=== PATIENT | male | born 1990 | race Caucasian/White ===

== ENCOUNTER 2017-02-15 22:15 | Emergency (ER) | payer OTHER ==
[2017-02-15] MEDS ORDERED: Tetan/Diph/Pertus SYR(Tdap)* 0.5 ML SYR(BOOSTRIX) use SYR IM ONE (22:34)
[2017-02-15] MEDS ORDERED: Clindamycin 600 MG IVPREMIX(* 600 MG/50 ML SDV IV ONE (22:34)
[2017-02-15] MEDS ORDERED: NS 0.9% 1000 ML* 1,000 ML IV ONE (22:36)
[2017-02-15] MEDS: HYDROmorphone* 1 MG/ML 1 ML SYR IV SLOW PU ONE (22:50)
[2017-02-15 23:02] LABS: Hematocrit 48 % (42-52); Hemoglobin 16.6 g/dl (14.0-18.0); Mean Corpuscular HGB Conc 35 g/dl (31-36); Mean Corpuscular Hemoglobin 30 pg (27-31); Mean Corpuscular Volume 85 fL (80-94); Mean Platelet Volume 8 um3 (7.4-10.4); Red Blood Count 5.61 10^6/ul (4.0-5.4); Red Cell Distribution Width 13 % (10.5-15); White Blood Count 9.7 10^3/ul (3.5-10.8)
[2017-02-15 23:18] LABS: Albumin 4.3 g/dL (3.2-5.2); BUN/Creatinine Ratio 20.4 (8-20); Calcium 9.2 mg/dL (8.6-10.3); EGFR African American 118.9 (>60); EGFR Non-African American 92.5 (>60); Globulin 2.8 g/dL (2-4); Potassium 3.1 mmol/L (3.5-5.0); Total Bilirubin 0.5 mg/dL (0.2-1.0); Total Protein 7.1 g/dL (6.4-8.9)
[2017-02-15] MEDS ORDERED: HYDROmorphone* 1 MG/ML 1 ML SYR IV SLOW PU ONE (23:25)
[2017-02-16] MEDS ORDERED: HYDROmorphone* 1 MG/ML 1 ML SYR IV SLOW PU ONE (01:37)
[2017-02-16] MEDS ORDERED: HYDROmorphone* 1 MG/ML 1 ML SYR ONE (03:06)
[2017-02-16] MEDS: HYDROmorphone* 1 MG/ML 1 ML SYR IV SLOW PU ONE (03:15)
[2017-02-16] MEDS ORDERED: Clindamycin CAP* 150 MG PO ONE (05:46)
[2017-02-16] MEDS ORDERED: oxyCODONE/Acetamin 5/325 MG* TAB PO ONE ×2 (05:47→05:51)
[2017-02-16 06:23] VITALS: BP 110/75
--- NOTE | 2017-02-16 06:31 | ED ---
Elena Howell SooYoung, scribed for Frank Blank MD on 02/15/17 at 2232 . Laceration/Wound HPI - HPI Summary HPI Summary: A 27 y/o M presents to ED with multiple lacs to R hand onset [employer]. Pt was working on his home using a table saw, when he sliced into his R hand. Primary lac is to R index finger. He is unable to move his index finger. Additional superficial lacs to middle finger, ring finger and palm. Denies other injury. Pt is R-hand dominant. Unknown date of tetanus. 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 - History of Current Complaint Stated Complaint: RT HAND LAC Hx Obtained From: Patient Mechanism of Injury: Sharp/Blunt Trauma - table saw Onset/Duration: Sudden Onset, Still Present Current Severity: Severe Pain Intensity: 8 Pain Scale Used: 0-10 Numeric Related Hx: Dominant Hand (Right) - Allergy/Home Medications Allergies/Adverse Reactions: Allergies Allergy/AdvReac Type Severity Reaction Status Date / Time Cefaclor [From [facility]] Allergy Severe TONGUE Verified 02/15/17 22:28 SWELLING PMH/Surg Hx/FS Hx/Imm Hx Previously Healthy: Yes Endocrine/Hematology History: Denies: Hx Diabetes Cardiovascular History: Denies: Hx Hypertension History: Denies: Hx Renal Disease - Surgical History Surgery Procedure, Year, and Place: EAR SURGERIES, HERNIA REPAIR Infectious Disease History: Denies: Traveled Outside the [place] in Last 30 Days - Family History Known Family History: Negative: Blood Disorder - Social History Occupation: Employed Full-time Lives: Alone Alcohol Use: Occasionally Hx Substance Use: No Substance Use Type: Reports: None Hx Tobacco Use: Yes Smoking Status (MU): Never Smoked Tobacco Type: Smokeless Tobacco Review of Systems Negative: Fever Positive: Other - pos: multiple lacs to R hand All Other Systems Reviewed And Are Negative: Yes Physical Exam - Summary Physical Exam Summary: The patient is well-nourished and in mild pain distress. The skin is warm and diaphoretic and pale. HEENT: The head is normocephalic and atraumatic. The pupils are equal and reactive. The conjunctivae are clear and without drainage. Nares are patent and without drainage. Mouth reveals moist mucous membranes and the throat is without erythema and exudate. The external ears are intact. The ear canals are patent and without drainage. The tympanic membranes are intact. Neck is supple with full range of motion and non-tender. There are no carotid bruits. There is no neck vein distension. Respiratory: Chest is non-tender. Lungs are clear to auscultation and breath sounds are symmetrical and equal. Cardiovascular: Hear is regular rate and rhythm. There is no murmur or rub auscultated. There is no peripheral edema and pulses are symmetrical and equal. Abdomen: The abdomen is soft and non-tender. There are normal bowel sounds heard in all four quadrants and there is no organomegaly palpated. Musculoskeletal: There is no back pain noted. Extremities are non-tender with full range of motion. There is no peripheral edema or calf tenderness elicited. RUE exam: No elbow or wrist tenderness. R index finger is in flexion and not able to extend. There is an extension avulsion lac over PIP joint. Dislocation. Good sensation distally to wound. Capillary refill is 2 seconds. Middle finger has lacs to tip and proximal area. Lac on R thumb. Neurological: Patient is alert and oriented to person, place and time. The patient has symmetrical motor strength in all four extremities. Cranial nerves are grossly intact. Deep tendon reflexes are symmetrical and equal in all four extremities. Psychiatric: The patient has an appropriate affect and does not exhibit any anxiety or depression. Triage Information Reviewed: Yes Vital Signs On Initial Exam: Initial Vitals Temp Pulse Resp BP Pulse Ox 98.4 F 56 16 119/74 95 02/15/17 22:23 02/15/17 22:23 02/15/17 22:23 02/15/17 22:23 02/15/17 22:23 Vital Signs Reviewed: Yes Procedures - Splinting Location: R hand Hand-Made Type: orthoglass Splint: volar Pre-Proc Neuro Vasc Exam: normal Post-Proc Neuro Vasc Exam: normal - Laceration/Wound Repair 1 Location: upper extremity - R index finger Description: Irregular - on PIP joint Anesthesia: Digital, 1.0% Length, Depth and Shape: 5cm long x 2cm wide; 1cm deep Betadine Prep?: Yes Irrigated w/ Saline (ccs): 3,000 Closure: Single Layer Suture Type: Prolene - 4-0 Number of Sutures: 18 Layer Closure?: No Sterile Dressing Applied?: No - compression dressing 2 Location: upper extremity - R middle finger tip Description: Linear Anesthesia: Digital, 1.0% Length, Depth and Shape: 1.5cm long x 0.5cm wide Betadine Prep?: Yes Irrigated w/ Saline (ccs): 3,000 Laceration/Wound Explored: no foreign body removed Closure: Single Layer Suture Type: Prolene - 4-0 Number of Sutures: 4 Layer Closure?: No Sterile Dressing Applied?: No - compression dressing 3 Location: upper extremity - R middle finger base Description: Irregular Anesthesia: Digital, 1.0% Length, Depth and Shape: 4cm long x 3cm wide Betadine Prep?: Yes Irrigated w/ Saline (ccs): 3,000 Laceration/Wound Explored: no foreign body removed Closure: Single Layer Suture Type: Prolene - 4-0 Number of Sutures: 12 Layer Closure?: No Sterile Dressing Applied?: No - compression dressing Diagnostics - Vital Signs Vital Signs Temp Pulse Resp BP Pulse Ox 02/16/17 06:22 99.1 F 51 16 110/75 02/16/17 06:12 53 98 02/16/17 06:04 16 02/16/17 06:00 110/75 02/16/17 05:30 120/76 02/16/17 05:00 123/73 02/16/17 04:30 103/67 02/16/17 04:00 114/74 02/16/17 03:30 110/64 02/16/17 03:15 16 02/16/17 03:00 114/73 02/16/17 02:30 108/82 02/16/17 01:47 16 02/16/17 01:30 99/57 02/16/17 01:22 78 95 02/16/17 01:00 76 111/57 95 02/16/17 00:30 79 110/55 95 02/16/17 00:01 77 112/61 95 02/16/17 00:00 75 96 02/15/17 23:55 74 98 02/15/17 23:35 16 02/15/17 23:30 66 113/66 98 02/15/17 23:00 61 118/74 99 02/15/17 22:50 16 02/15/17 22:36 59 100 02/15/17 22:35 111/71 02/15/17 22:23 98.4 F 56 16 119/74 95 - Laboratory Lab Results: Lab Results 02/15/17 02/15/17 02/15/17 Range/Units 22:28 22:28 22:28 WBC 9.7 (3.5-10.8) 10^3/ul RBC 5.61 H (4.0-5.4) 10^6/ul Hgb 16.6 (14.0-18.0) g/dl Hct 48 (42-52) % MCV 85 (80-94) fL MCH 30 (27-31) pg MCHC 35 (31-36) g/dl RDW 13 (10.5-15) % Plt Count 329 (150-450) 10^3/ul MPV 8 (7.4-10.4) um3 Neut % (Auto) 34.8 L (38-83) % Lymph % (Auto) 50.6 H (25-47) % Ector % (Auto) 9.9 H (1-9) % Eos % (Auto) 4.0 (0-6) % Baso % (Auto) 0.7 (0-2) % Absolute Neuts (auto) 3.4 (1.5-7.7) 10^3/ul Absolute Lymphs (auto) 4.9 H (1.0-4.8) 10^3/ul Absolute Monos (auto) 1.0 H (0-0.8) 10^3/ul Absolute Eos (auto) 0.4 (0-0.6) 10^3/ul Absolute Basos (auto) 0.1 (0-0.2) 10^3/ul Absolute Nucleated RBC 0 10^3/ul Nucleated RBC % 0.1 INR (Anticoag Therapy) 0.94 (0.89-1.11) Sodium 135 (133-145) mmol/L Potassium 3.1 L (3.5-5.0) mmol/L Chloride 100 L (101-111) mmol/L Carbon Dioxide 27 (22-32) mmol/L Anion Gap 8 (2-11) mmol/L BUN 20 (6-24) mg/dL Creatinine 0.98 (0.67-1.17) mg/dL Est GFR ( Amer) 118.9 (>60) Est GFR (Non-Af Amer) 92.5 (>60) BUN/Creatinine Ratio 20.4 H (8-20) Glucose 118 H (70-100) mg/dL Calcium 9.2 (8.6-10.3) mg/dL Total Bilirubin 0.50 (0.2-1.0) mg/dL AST 18 (13-39) U/L ALT 23 (7-52) U/L Alkaline Phosphatase 55 (34-104) U/L Total Protein 7.1 (6.4-8.9) g/dL Albumin 4.3 (3.2-5.2) g/dL Globulin 2.8 (2-4) g/dL Albumin/Globulin Ratio 1.5 (1-3) Result Diagrams: 02/15/17 22:28 02/15/17 22:28 Lab Statement: Any lab studies that have been ordered have been reviewed, and results considered in the medical decision making process. - Radiology HAND XR Xray Interpretation: Positive (See Comments) - Dislocated and fractured R index finger Radiology Interpretation Completed By: ED Physician Re-Evaluation - Re-Evaluation 1 Re-Evaluation Time: 05:57 Change: Improved Comment: Discussing dispo and follow up care with pt and family. Laceration Repair Course/Dx - Course Course Of Treatment: A 27 y/o M presents to ED with multiple lacs to R hand onset [employer]. Pt was working on his home using a table saw, when he sliced into his R hand. Primary lac is to R index finger. He is unable to move his index finger. Additional superficial lacs to middle finger, ring finger and palm. Denies other injury. Pt is R-hand dominant. Unknown date of tetanus. 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 Pt given fluids, Dilaudid, Percocet, clindamycin, Tdap in ED. Blood work results are without significant abnormalities. Hand XR shows dislocated and fractured R index finger. Laceration repair performed by ROSALVA Leo. Will D/C home with Percocet and Clindamycin, to f/u with ortho hand surgeons. - Differential Dx Differental Diagnoses: Laceration, Tendon Laceration, Other - open fracture, open dislocation, avulsion laceration right index finger - Clinical Impression Provider Diagnoses: Open fracture dislocation R index finger, Laceration of right middle finger - Physician Notifications Discussed Care Of Patient With: Chuckie Martínez - ortho Time Discussed With Above Provider: 23:09 Instructed by Provider To: Other - Will look at XRs and call back Discharge - Discharge Plan Condition: Stable Disposition: HOME Prescriptions: Clindamycin Cap(NF) [Clindamycin Cap 300 mg Cap(NF)] 300 mg PO Q6H #40 cap oxyCODONE/Acetamin 5/325 MG* [Percocet 5/325 TAB*] 1 tab PO Q6H PRN #20 tab MDD 4 PRN Reason: pain Patient Education Materials: Finger Laceration (ED), Oxycodone/Acetaminophen ( By mouth), Clindamycin (By mouth), Splint Care (ED) Referrals: Bryce Sandhu MD [Primary Care Provider] - Elvis Morales MD [Medical Doctor] - Lori Locke MD [Medical Doctor] - Additional Instructions: Follow up with Dr. Locke or Dr. Morales, orthopedic hand surgeons, in 1-2 days. Keep dressing and splint in place until rechecked. Keep an eye out for signs or symptoms of infection. Please return to the ED if you experience new or worsening symptoms. Consult Consult: 2332: Consult with Dr. Martínez Recommends reducing finger. Irrigate, clean, suture and splint it. The documentation as recorded by the Elena ewing SooYoung accurately reflects the service I personally performed and the decisions made by , Frank Blank MD.
--- NOTE | 2017-02-16 07:12 | RAD ---
INDICATION: Fracture/dislocation left second digit. COMPARISON: None TECHNIQUE: AP, lateral, and oblique views were obtained. FINDINGS: There is a comminuted fracture of the distal aspect of the proximal phalanx of the second digit. There is a flexion deformity with apparent dislocation at the PIP joint. No other fractures are evident. There is associated soft tissue injury. IMPRESSION: FRACTURE-DISLOCATION ABOUT THE PIP JOINT OF THE SECOND DIGIT
== END 2017-02-16 06:22 | disposition home or self-care (01) ==
LOC: ED 22:15
DX: S62.600B Fracture of unspecified phalanx of right index finger, initial encounter for open fracture (principal); S61.212A Laceration without foreign body of right middle finger without damage to nail, initial encounter; W29.8XXA Contact with other powered hand tools and household machinery, initial encounter; Y93.89 Activity, other specified; Y92.89 Other specified places as the place of occurrence of the external cause
CPT/HCPCS: 12004; 36415; 80053; 85025; 85610; 90471; 90715; 96374; 96376; 99284; A9270-GY; J1170

== ENCOUNTER 2017-02-20 09:45 | Day surgery (SDC) | payer OTHER ==
[~2017-02-20 09:45] MED LIST: Buffered Lidocaine 0.9% SYRIN* 5 ML/SYR SYRINGE INTRADERM ONE; Dexamethasone IV* 4 MG/ML 1 ML (4 MG) IV SLOW PU ONE; Famotidine IV* 10 MG/ML 2 ML (20 mg) IV ONE
[2017-02-20] MEDS ORDERED: Dexamethasone IV* 4 MG/ML 1 ML (4 MG) ONE (10:13)
[2017-02-20] MEDS ORDERED: ceFAZolin 2 GM PREMIX (*) 50 ML IVPB ONE (10:13)
[2017-02-20] MEDS ORDERED: Famotidine IV* 10 MG/ML 2 ML (20 mg) ONE (10:14)
[2017-02-20] MEDS ORDERED: fentaNYL* 50 MCG/ML 2 ML VIAL (100 MCG VIAL) ONE (11:52)
[2017-02-20] MEDS ORDERED: Midazolam* 1 MG/ML 2 ML VIAL (2 MG) ONE (11:53)
[2017-02-20] MEDS ORDERED: Bupivacaine 0.25% SDV* 30 ML ONE (11:55)
[2017-02-20] MEDS ORDERED: Ketorolac INJ* 30 MG/ML 1 ML VIAL ONE (12:14)
[2017-02-20] MEDS ORDERED: PROCHLORPERAZINE INJ 5 MG/ML 2 ML VIAL IV PRN (12:29)
[2017-02-20] MEDS ORDERED: oxyCODONE/Acetamin 5/325 MG* TAB PO PRN (12:29)
[2017-02-20] MEDS ORDERED: fentaNYL* 50 MCG/ML 2 ML VIAL (100 MCG VIAL) IV PRN (12:29)
[2017-02-20] MEDS ORDERED: HYDROcodone/ACETAMIN 5-325 MG* 1 TAB PO PRN (12:29)
[2017-02-20] MEDS ORDERED: Ondansetron INJ* 2 MG/ML VIAL ONE (13:53)
[2017-02-20 14:48] VITALS: BP 112/59
--- NOTE | 2017-02-20 18:44 | RAD ---
INDICATION: Right index finger internal fixation, history of trauma COMPARISONS: February 15, 2017 TECHNIQUE: Fluoroscopy was provided for a surgical procedure. Total fluoroscopy time is: 51 seconds FINDINGS: Spot images, submitted for review on February 20, 2017, demonstrate internal fixation of the proximal phalanx of the second digit. IMPRESSION: FLUOROSCOPY WAS PROVIDED FOR A SURGICAL PROCEDURE CPT II Codes: 6045F
--- NOTE | 2017-02-21 03:41 | OP ---
DATE OF OPERATION: 02/20/17 - [facility] DATE OF : 89 SURGEON: Elvis Morales MD EAR PULL MACHINE OPERATOR: ROSALVA Meyer. An optometrist assistant was needed for the entirety of the procedure to aid in positioning of the hand and retraction and reduction of the small fragments. ANESTHESIOLOGIST: Leidy Carreon MD ANESTHESIA: General. PRE-OP DIAGNOSIS: Right index finger table saw injury with severe destruction to the proximal interphalangeal joint. POST-OP DIAGNOSIS: Right index finger table saw injury with severe destruction to the proximal interphalangeal joint. OPERATIVE PROCEDURE: 1. Exploration of right index finger wound. 2. Irrigation and debridement of skin, subcutaneous tissue, tendon and bone, right index finger proximal phalanx open fracture. 3. Open reduction internal fixation, right index finger proximal phalanx intraarticular fracture. 4. Repair of extensor tendon, right index finger. 5. Closure of complex traumatic wound, right index finger measuring 5 cm in length. ESTIMATED BLOOD LOSS: 5 mL. COMPLICATIONS: None. FINDINGS: There were 2 large pieces making up the ulnar condyle. These were reducible and pinnable. There was a fragment of bone that had the radial collateral ligament attached to it that was pinnable. The radial condyle had the volar 50% left intact. The dorsal 50% was lost due to the saw blade. There was a significant distal shaft metaphyseal defect. The entire extensor mechanism was lacerated about 7 or 8 cm proximal to the distal insertion of the central slip. I could get it to approximate with one 3-0 Prolene stitch. It did not look like the wound extended volar to the anterior cortex of the proximal phalanx as the volar cortex was intact throughout the proximal phalanx ; therefore, I think that the digital nerves are almost certainly intact. His preoperative examination in the preop area would suggest that as well. He also has a traumatic laceration over the proximal aspect of the middle phalanx that is closed with some Prolene suture. The fingers flexed and extended nicely. I checked his sensation in the preop holding area and it was intact on both the radial and ulnar aspects of the finger tip. DESCRIPTION OF PROCEDURE: Rubin was seen in the preoperative holding area. The correct side, site, and procedure were identified. We came back to the operating room where anesthesia was induced. I removed all of the sutures in the right index finger. We then did Betadine prep and the arm was draped in the usual fashion with an upper arm tourniquet in place. I began by opening back up the traumatic laceration with some gentle spreading of the tenotomy scissors. The laceration over the dorsal proximal phalanx had already opened up during the prep. The wound was irrigated. I used a microcurette to debride fair amount of small black metallic fragments from the wound. I cleaned up the traumatic skin edges and the traumatized tendon edges. Several small pieces of bone were debrided. I took everything back until nothing but clean healthy bone and tissue remained. This was all accomplished with the use of the pickups, the tenotomy scissors, small rongeur, and the microcurette. After I had the debridement done, I did brought in some saline Betadine soak, had the finger soak for 5 minutes. I then irrigated out copiously again. Everything looked clean at this point. At this point, I examined what bone I had to work with. On the distal ulnar aspect, there were two large fragments composing the ulnar condyle. I was able to use the dental pick and my pickups to reduce these two fragments back together. I then used one 0.8-mm K wire to secure the 2 fragments together. These two fragments composed about 80% of the ulnar condyle. I then reduced it back to the volar 20% of the ulnar condyle and used two 0.6-mm K wires to secure the newly reformed fragment back to the volar condyle. The reduction was anatomic. The ulnar condyle looked excellent. I examined the radial condyle. There was a wafer of bone with radial collateral ligament attached to it with maybe the radial 10% of articular surface. I reduced this and pinned it back to the volar cortex with a 0.8-mm K wire. The volar 50% of the radial condyle was in continuity with the volar cortex and intact. The dorsal 50% of the radial condyle was missing. There was no injury to the base of the middle phalanx. Once I had reduced all of the bony fragments possible, I went ahead and looked it what defect I had. There was extensive dorsal distal shaft defect. This continued on involving the dorsal half of the radial condyle. At this point, I reapproximated my extensor tendon with some 3-0 Prolene grasping sutures. A total of three sutures were used to repair the extensor tendon. It actually approximated fairly easily. At this point, it was more of a wound issue and the very traumatized nature of the wound and the traumatized skin was the reason why I had not elected to proceed with some sort of definitive fusion at this time. I simply did not feel good about putting any definitive fixation or a piece of distal radius bone graft in the wound without a good soft tissue envelope. After the tendon was repaired, I went ahead and took some 4-0 nylon suture. I was able to close the most proximal part of the wound easily. When I got to the level little more distal over the area of the large bony defect, I was able to place a 4- 0 nylon retention suture and this approximated the skin nicely. I then was able to piece back together the distal flaps of skin. Most of the epidermis was missing but there was a pretty healthy and significant dermal layer present. Multiple 4-0 nylon sutures were used to piece this back together. Ultimately, I was able to get the wound closed satisfactorily. Please note I did not mention earlier that after I had piece back together the articular surface and prior to preparing the extensor tendon, I had brought the middle phalanx back up and reduced the PIP joint. I had then pinned the joint in the reduced position in about 20 to 30 degrees of flexion with one transarticular 0.8-mm K-wire starting on the distal ulnar middle phalanx and crossing the joint and exiting out, grabbing the intact portion of the proximal phalanx. I could see the tip of that wire come out into the bony defect and wire was really in the nice position. After the skin was closed, we cleaned up the area. I performed digital block with 0.25% plain Marcaine. The tourniquet was deflated. All the skin flaps pinked up nicely. I went ahead and dressed the wound with Xeroform, 4x4's. The middle finger wound was just dressed with 4x4's. The index and middle fingers were incorporated into a short arm plaster splint grabbing with dorsal and volar flaps. There was little bit of thumb tip abrasion that was covered with a Band-Aid. He was then awoken up and taken to the recovery room in stable condition. POSTOPERATIVE PLAN: He has the transarticular wire in place. We have to let the soft tissue envelope to heal. Currently, the soft tissue envelope precludes any sort of definitive fixation. I did contemplate taking a heterodigital island flap to cover the wound dorsally that ultimately I can get the wound closed primarily and I think that with few weeks of healing, this will be stable enough to proceed with or to have conversation about potential definitive fusion with likely a piece of distal radius bone graft. For now, we are going to let the soft tissue envelope heal and I will follow in the office for few weeks while that occurs. [id number]/[facility] #: [id number] MTDD
== END 2017-02-20 15:02 | disposition home or self-care (01) ==
LOC: OREAST 09:45
PROVIDERS: ATTEND Orthopaedic Surgery Hand Surgery
DX: S62.610B Displaced fracture of proximal phalanx of right index finger, initial encounter for open fracture (principal); S66.320A Laceration of extensor muscle, fascia and tendon of right index finger at wrist and hand level, initial encounter; S61.212A Laceration without foreign body of right middle finger without damage to nail, initial encounter; W31.2XXA Contact with powered woodworking and forming machines, initial encounter; Y92.9 Unspecified place or not applicable; Z88.1 Allergy status to other antibiotic agents; Z87.891 Personal history of nicotine dependence
CPT/HCPCS: 76000; C1776; J0690; J1100; J1885; J2250; J2405; J3010

== ENCOUNTER 2018-02-04 13:07 | Emergency (ER) | payer OTHER ==
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
[2018-02-04] MEDS ORDERED: Ketorolac INJ* 60 MG/2 ML VIAL IM ONE (14:03)
[2018-02-04] MEDS ORDERED: HYDROcodone/ACETAMIN 5-325 MG* 1 TAB PO ONE (14:03)
--- NOTE | 2018-02-04 14:55 | RAD ---
Indication: Right knee pain. 4 views of the right knee are reviewed. The joint spaces all well-preserved. Osteopenia is noted. No fracture or joint effusion is noted. IMPRESSION: Unremarkable right knee.
[2018-02-04 16:14] VITALS: BP 127/73
== END 2018-02-04 16:13 | disposition home or self-care (01) ==
LOC: ED 13:07
DX: M25.561 Pain in right knee (principal); F17.290 Nicotine dependence, other tobacco product, uncomplicated; Z91.81 History of falling; Z87.39 Personal history of other diseases of the musculoskeletal system and connective tissue; Z88.3 Allergy status to other anti-infective agents
CPT/HCPCS: 96372; 99282; J1885

== ENCOUNTER 2018-04-17 01:33 | Emergency (ER) | payer OTHER ==
[2018-04-17] MEDS ORDERED: Morphine INJ* 4 MG/ML 1 ML SYRINGE (NEW SYRINGE VERSION) IV ONE (02:08)
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
[2018-04-17] MEDS ORDERED: Metoclopramide IV* 5 MG/ML 2 ML VIAL IV SLOW PU ONE (02:09)
[2018-04-17 02:36] LABS: ABS Basophils 0.1 10^3/ul (0-0.2); ABS Eosinophils 0.4 10^3/ul (0-0.6); ABS Lymphocytes 2.1 10^3/ul (1.0-4.8); ABS Monocytes 0.7 10^3/ul (0-0.8); ABS Neutrophils 3.6 10^3/ul (1.5-7.7); ABS Nucleated RBC 0 10^3/ul; Eosinophil % 5.8 % (0-6); Hematocrit 44 % (42-52); Hemoglobin 15.7 g/dl (14.0-18.0); Lymphocyte % 30.8 % (25-47); Mean Corpuscular HGB Conc 36 g/dl (31-36); Mean Corpuscular Hemoglobin 30 pg (27-31); Mean Corpuscular Volume 85 fL (80-94); Mean Platelet Volume 7.3 um3 (7.4-10.4); Nucleated Red Blood Cells % 0.1; Platelet Count 252 10^3/ul (150-450); Red Blood Count 5.21 10^6/ul (4.00-5.40); Red Cell Distribution Width 14 % (10.5-15)
[2018-04-17 02:48] LABS: EGFR Non-African American 98.7 (>60)
[2018-04-17 05:42] VITALS: BP 114/71
--- NOTE | 2018-04-17 07:50 | RAD ---
Indication: Chest pain. Single frontal view of the chest performed at 0220 hours was reviewed. Comparison is made with previous exam dated May 07, 2016. No mediastinal shift is noted. Heart is of normal size and configuration. Lung maurice appear clear. IMPRESSION: NO ACTIVE CARDIOPULMONARY DISEASE IS NOTED. R0
== END 2018-04-17 05:42 | disposition home or self-care (01) ==
LOC: ED 01:33
DX: R07.89 Other chest pain (principal); Z88.1 Allergy status to other antibiotic agents; F17.220 Nicotine dependence, chewing tobacco, uncomplicated
CPT/HCPCS: 36415; 71045; 80053; 82550; 82553; 83605; 83735; 84484; 85025; 85652; 86140; 93005; 96374; 96375; 99283; J2270; J2765

== ENCOUNTER 2019-08-08 00:02 | Emergency (ER) | payer OTHER ==
[2019-08-08 00:08] VITALS: BP 151/112
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
--- OUTSIDE RECORDS SUMMARY | 2019-08-08 00:11 | XMS REPORT | Summary of Care ---
:1990 Author Organization [facility] Address [address] [place] [address] Care Team Providers Name Role Phone Stated, Not Unavailable Unavailable Demetris Sanchez Primary Care Provider Reason for Visit Reason Comments Follow Up Right knee Core Decompression 6.7.19, pt arrived in brace wears it as needed due to the discomfort, pt has been doing at home PT due to comp discontinuing PT, pt states that he is in pain Knee Injury right Worker's Compensation 11.8.19 Encounter Details Date Type Department Care Team Description 07/12/2019 Office Visit [facility] [place], Avascular necrosis of right femur (HCC) (Primary Dx); [address] Chavez, JESSY Chronic pain of right knee [place] [id number] [address] Arm[address] [phone] [place] [address] Allergies Active Allergy Reactions Severity Noted Date Comments Cefaclor Monohydrate Hives, Swelling 12/16/2008 Tongue swelling Clindamycin Hives 02/21/2017 documented as of this encounter (statuses as of 07/22/2019) Medications Medication Sig Dispensed Refills Start Date End Date Status ibuprofen (MOTRIN) 800 Take 1 Tab by 60 Tab 0 12/04/2018 Active MG Oral Tab mouth EVERY SIX HOURS NEEDED (moderate pain). Hospital, Clinic, or Other Ordered Dose Route Frequency Start Date End Date Status Facility Administered Medication methylPREDNISolone acetate 80 mg IX NOW 07/12/2019 07/12/2019 Ended (DEPO-MEDROL) injection 80 MG/MLIndications: Avascular necrosis of right femur (HCC) documented as of this encounter (statuses as of 07/22/2019) Active Problems Problem Noted Date Avascular necrosis of right femur 11/11/2018 Overview: Added automatically from request for surgery [id number] Complex regional pain syndrome type 1 of right lower extremity 09/18/2017 Chronic pain of right knee 08/07/2017 AVN (avascular necrosis of bone) 03/04/2017 Traumatic tear of medial meniscus of right knee 01/07/2017 Synovitis 08/05/2016 Right knee pain 05/13/2016 History of tobacco use 07/27/2015 Overview: Quit age 20 documented as of this encounter (statuses as of 07/22/2019) Resolved Problems Problem Noted Date Resolved Date Acute pain of right knee 02/05/2018 03/11/2018 Tear of lateral cartilage or meniscus of knee, current 06/03/2016 03/11/2018 Knee sprain 12/26/2013 07/27/2015 Knee pain, left 11/19/2013 07/27/2015 documented as of this encounter (statuses as of 07/22/2019) Social History Tobacco Use Types Packs/Day Years [...] Signs Not on filedocumented in this encounter Progress Notes Scott Beaver NP - 07/12/2019 8:00 AM EST Name: Rubin May : 1990 Date of Service: 07/12/2019 Chief Complaint Patient presents with Follow Up Right knee Core Decompression 6.01.15, pt arrived in brace wears it as needed due to the discomfort, pt has been doing at home PT due to comp discontinuing PT , pt states that he is in pain Knee Injury right Worker's Compensation 05.07.19 SUBJECTIVE: Rubin May is a 29-y.o. male who is approximately 7 months status-post right knee core decompression of medial femoral condyle. The patient reports he is doing about the same - pain continues without any significant changes. He does report he has made progress with his quad strength and has been ambulating without assistive devices. He reports he has little pain while standing still but has significant pain while ambulating, squatting, kneeling. Reports pain is along the medial joint line, described as sharp/stabbing. He has been doing therapeutic home exercises regularly, has stopped formal PT. Reports fair pain control with ibuprofen. Patient denies calf pain, numbness, tingling. Denies fevers, chills, constitutional symptoms. Past Medical History: Diagnosis Date H/O clavicle fracture Past Surgical History: Procedure Laterality Date ARTHROSCOPY KNEE Right 07/24/2016 Procedure: ARTHROSCOPY KNEE-MEDIAL MENISCUS TEAR; Surgeon: Bryce Sparks MD ; Location: [facility] MAIN OR KNEE ARTHROSCOPY Right 07/24/2016 Dr. Sparks KNEE ARTHROSCOPY Right 05/21/2017 Dr. Sparks MYRINGOTOMY WITH TUBES, BILATERAL OTHER HERNIA REPAIR CT HAND/FINGER SURGERY UNLISTED Right 2nd digit CT KNEE SCOPE,MED/LAT MENISECTOMY Right 05/21/2017 Procedure: ARTHROSCOPY KNEE RIGHT; Surgeon: Bryce Sparks MD; Location: [facility] MAIN OR Family History Problem Relation Age of Onset Heart Disease Maternal Grandfather Anesth Problems No family history Arthritis No family history Cancer No family history Clotting Disorder No family history Diabetes No family history Hypertension No family history Kidney Disease No family history Thyroid Disease No family history Social History Socioeconomic History Marital status: Spouse name: Not on file Number of children: Not on file Years of education: Not on file Highest education level: Not on file Occupational History Not on file Social Needs Financial resource strain: Not on file Food insecurity Worry: Not on file Inability: Not on file Transportation needs Medical: Not on file Non-medical: Not on file Tobacco Use Smoking status: Former Smoker Types: Cigarettes Last attempt to quit: 07/24/2008 Years since quittin.0 Smokeless tobacco: Former User Types: Chew Quit date: 01/17/2018 Tobacco comment: daily Substance and Sexual Activity Alcohol use: Yes Alcohol/week: 1.0 standard drinks Types: 1 Standard drinks or equivalent per week Comment: rarely Drug use: No Sexual activity: Yes Partners: Female Lifestyle Physical activity Days per week: Not on file Minutes per session: Not on file Stress: Not on file Relationships Social connections Talks on phone: Not on file Gets together: Not on file Attends gnosticist service: Not on file Active member of club or organization: Not on file Attends meetings of clubs or organizations: Not on file Relationship status: Not on file Intimate partner violence Fear of current or ex partner: Not on file Emotionally abused: Not on file Physically abused: Not on file Forced sexual activity: Not on file Other Topics Concern Back Care Not Asked Bike Helmet Not Asked Blood Transfusions Not Asked Caffeine Concern Not Asked Exercise Yes Comment: gym workout Hobby Hazards Not Asked International Travel Not Asked Service Not Asked Occupational Exposure Not Asked Seat Belt Not Asked Self-Exams Not Asked Sleep Concern Not Asked Special Diet No Stress Concern Not Asked Weight Concern Yes Comment: 10 lb wt loss Social History Narrative Lives in [facility] Engaged to be 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's office Allergies Allergen Reactions Ceclor Cd [Cefaclor Monohydrate] Hives and Swelling Tongue swelling Clindamycin Hives Current Outpatient Medications Medication Sig ibuprofen (MOTRIN) 800 MG Oral Tab Take 1 Tab by mouth EVERY SIX HOURS NEEDED (moderate pain). No current facility-administered medications for this visit. Review of Systems: CONSTITUTIONAL: negative for fevers, chills, weight loss and weight gain. RESPIRATORY:negative for cough, wheezing or shortness of breath. CARDIOVASCULAR:negative for chest pain, palpitations, fatigue, tachypnea. GASTROINTESTINAL: negative fordysphagia, nausea, diarrhea and constipation. GENITOURINARY: negative for frequency, dysuria and urinary incontinence. INTEGUMENTARY: negative for rash and skin lesion(s). NEUROLOGICAL: negative for headaches, dizziness, vertigo, seizures, paresthesia and tremor. MUSCULOSKELETAL: negative except as noted in HPI. OBJECTIVE: Physical Exam: <Not on file> Right Knee Surgical site unremarkable. There is no erythema, warmth, or rubor. No visible swelling. No ecchymosis. ROM is 0 degrees of extension, 140 degrees flexion. Quad strength improving, strength grossly 4+ to5-/5. Reports pain along medial joint line with resisted extension. He remains tender along the medial joint line. No obvious deformity. Overall alignment is normal. Distal pulses and sensation intact. LEFT KNEE There is no erythema, ecchymosis or skin lesions present There is no warmth and no rubor. There no effusion. There is no crepitation. There is no tenderness to palpation. There is full ROM. The knee is stable to lachmans, posterior drawer and varus/valgus stress There is a negative kay's sign. The lower extremity is neurovascularly intact distally with palpable pedal pulses at the DP/PT. ASSESSMENT: ICD-9-CM ICD-10-CM 1. Avascular necrosis of right femur (HCC) 733.42 M87.051 XR KNEE 4 OR MORE VIEWS RIGHT (STANDARD) INJECTION, JOINT SHOUDLER HIP KNEE OR [place] methylPREDNISolone acetate (DEPO-MEDROL) injection 80 MG/ML 2. Chronic pain of right knee 719.46 M25.561 338.29 G89.29 PLAN: Reviewed findings with the patient and discussed plan of care now approximately 7 months status-postright knee core decompression of medial femoral condyle. The patient is doing fair, has made progress with quad strength and mobility but continues to report severe pain in the medial aspect of the right knee. We again reviewed that If his pain/avascular necrosis does not improve, he could be a candidate for partial knee replacement in the future, but given his age we would ideally exhaust our conservative treatment options before considering this. Will continue symptomatic management - Cryotherapy, non-steroidal anti- inflammatory medications as needed for discomfort. We also discussed possible intra-articular cortisone injection, and he elected to proceed with this today. PROCEDURE: Risks and benefits of intra-articular corticosteroid injection were reviewed with the patient. The patient is aware of these risks and has elected to proceed with corticosteroid injection into the Right knee. The patient's Right knee was thoroughly cleansed with antiseptic skin preparation solution. Using a sterile needle, 80mg of Depo-Medrol with 6mL of 0.5% Marcaine was delivered into the intra-articular space. The needle was withdrawn and a sterile dressing was applied over the injection site. Patient tolerated the procedure well without complications. We will have him follow-up in 6 weeks for re-evaluation. If no improvement, may recommend obtaining a second opinion with regard to further surgical intervention. In the interim, he was advised to continue activity modification based on his level of pain, and use Rest, Ice, Over the counter NSAIDS, Physical Therapy and Home exercises as needed for discomfort. Risks and benefits of the above recommendations were discussed with the patient today; all questions were answered. Case reviewed with Dr. Redman, who is in agreement with the above recommendations. Author: Scott Beaver NP documented in this encounter Plan of Treatment Date Type Specialty Care Team Description 08/10/2019 Office Visit Internal Medicine Demetris Sanchez MD [address] [place] [address] [phone] 08/16/2019 Office Visit Orthopedics Scott Beaver NP [address] [place] [address] Name Type Priority Associated Diagnoses Order Schedule INJECTION, JOINT Procedures Routine Avascular necrosis of Ordered: 2019 SHOUDLER HIP KNEE OR right femur (HCC) [place] Health Maintenance Due Date Last Done Comments [...] topic documented as of this encounter Results XR KNEE 4 OR MORE VIEWS RIGHT (STANDARD) (07/12/2019 9:05 AM EST) Specimen Impressions Performed At No significant change from the prior exam with diffuse heterogenous density about the right knee joint. Signed by Muna Blake MD, MFA on 07/14/2019 4:14 PM Narrative Performed At Procedure(s): XR KNEE 4 OR MORE VIEWS RIGHT (STANDARD) Date of service: 07/12/2019 8:53 AM Provided clinical information: 29 years, Male, "avascular necrosis right femur" Procedure and materials: 4 images of the right knee and 3 images of the left knee were obtained. Comparison studies: 09/30/2018 MRI and x-rays, 12/04/2018 Procedure Note Interface, Rad Results - 07/14/2019 4:16 PM EST Procedure(s): XR KNEE 4 OR MORE VIEWS RIGHT (STANDARD) Date of service: 07/12/2019 8:53 AM Provided clinical information: 29 years, Male, "avascular necrosis right femur" Procedure and materials: 4 images of the right knee and 3 images of the left knee were obtained. Comparison studies: 09/30/2018 MRI and x-rays, 12/04/2018 IMPRESSION No significant change from the prior exam with diffuse heterogenous density about the right knee joint. Signed by Muna Blake MD, MFA on 07/14/2019 4:14 PM documented in this encounter Visit Diagnoses Diagnosis Avascular necrosis of right femur (HCC) Chronic pain of right knee documented in this encounter Administered Medications Medication Order MAR Action Action Date Dose Rate Site methylPREDNISolone acetate Given 07/12/2019 8:43 AM 80 mg Knee - Right (DEPO-MEDROL) injection 80 EST MG/ML 80 mg, Intra-articular, NOW, 1 dose, 07/12/19 at 0850 documented in this encounter Insurance Payer Benefit Plan Subscriber ID Effective Dates Phone Address Type / Group [employer] [place]-Chronicity xxxxxxxx-xxxxxx 2016-Prese Workers Comp COMP [facility] GENERIC [phone] [id number] (Work) documented as of this encounter Advance Directives Code Status Date Activated Date Inactivated Comments Full Code 05/21/2017 1:50 PM 05/21/2017 5:12 PM Does patient have decision making capacity? yes Order discussed with: Patient I discussed all options and patient/surrogate requested and agreed to: Full Code
== END 2019-08-08 02:22 | disposition left against medical advice (07) ==
LOC: ED 00:02
DX: Z53.21 Procedure and treatment not carried out due to patient leaving prior to being seen by health care provider (principal); S09.90XA Unspecified injury of head, initial encounter; X58.XXXA Exposure to other specified factors, initial encounter; Y92.9 Unspecified place or not applicable
CPT/HCPCS: 99282

== ENCOUNTER 2019-08-15 09:02 | Emergency (ER) | payer OTHER ==
--- OUTSIDE RECORDS SUMMARY | 2019-08-15 10:05 | XMS REPORT | Summary of Care ---
:1990 Author Organization [facility] Address [address] [place] [address] Care Team Providers Name Role Phone Stated, Not Unavailable Unavailable Demetris Sanchez Primary Care Provider Reason for Visit Reason Comments Discuss Patient Care Patient states his Dr. Redman states he needed to see his PCP to discuss disability. Encounter Details Date Type Department Care Team Description 08/10/2019 Office Visit [facility] Demetris Sanchez, Avascular necrosis of right femur (HCC) (Primary Dx); Medicine Chronic pain of right knee [address] [place] [address] [place] [address] [phone] Allergies Active Allergy Reactions Severity Noted Date Comments Cefaclor Monohydrate Hives, Swelling 12/16/2008 Tongue swelling Clindamycin Hives 02/21/2017 documented as of this encounter (statuses as of 08/10/2019) Medications Medication Sig Dispensed Refills Start Date End Date Status ibuprofen (MOTRIN) 800 Take 1 Tab by 60 Tab 0 12/04/2018 Active MG Oral Tab mouth EVERY SIX HOURS NEEDED (moderate pain). documented as of this encounter (statuses as of 08/10/2019) Active Problems Problem Noted Date Avascular necrosis of right femur 11/11/2018 Overview: Added automatically from request for surgery [id number] Complex regional pain syndrome type 1 of right lower extremity 09/18/2017 Chronic pain of right knee 08/07/2017 Traumatic tear of medial meniscus of right knee 01/07/2017 History of tobacco use 07/27/2015 Overview: Quit age 20 documented as of this encounter (statuses as of 08/10/2019) Resolved Problems Problem Noted Date Resolved Date Acute pain of right knee 02/05/2018 03/11/2018 AVN (avascular necrosis of bone) 03/04/2017 08/10/2019 Synovitis 08/05/2016 08/10/2019 Tear of lateral cartilage or meniscus of knee, current 06/03/2016 03/11/2018 Right knee pain 05/13/2016 08/10/2019 Knee sprain 12/26/2013 07/27/2015 Knee pain, left 11/19/2013 07/27/2015 documented as of this encounter (statuses as of 08/10/2019) Social History Tobacco Use Types Packs/Day Years [...] of this encounter Last Filed Vital Signs Vital Sign Reading Time Taken Comments Blood Pressure 124/72 08/10/2019 3:50 PM EST Pulse 72 08/10/2019 3:50 PM EST Temperature - - Respiratory Rate - - Oxygen Saturation - - Inhaled Oxygen Concentration - - Weight 84.4 kg (186 lb) 08/10/2019 3:50 PM EST Height 177.8 cm (5' 10") 08/10/2019 3:50 PM EST Body Mass Index 26.69 08/10/2019 3:50 PM EST documented in this encounter Patient Instructions Patient InstructionsDemetris Sanchez MD - 08/10/2019 4:00 PM [facility] services office and have them fax or mail disability papers to me When I get these papers then we will make office visit here to fill these out documented in this encounter Progress Notes Demetris Sanchez MD - 08/10/2019 4:00 PM EST Here for follow up chronic knee pain he asks about disability He will see Dr Justyn Smith this year to discuss total knee replacement No change in chronic condition He continues to have chronic right knee pain I spent 15 minutes with the patient, greater than half of this time in direct [id number]-so-grot counseling addressing the current condition and plan of care. ICD-9-CM ICD-10-CM 1. Avascular necrosis of right femur (HCC) 733.42 M87.051 2. Chronic pain of right knee 719.46 M25.561 338.29 G89.29 Patient Instructions Call [facility] services office and have them fax or mail disability papers to me When I get these papers then we will make office visit here to fill these out Demetris Sanchez MDElectronically signed by Demetris Sanchez MD at 2019 4:11 PM ESTdocumented in this encounter Plan of Treatment Date Type Specialty Care Team Description 08/16/2019 Office Visit Orthopedics Scott Beaver NP [address] [place] [address] 09/17/2019 Office Visit Orthopedics Orlando Alejandra MD [address] [facility] [place] [address] Health Maintenance Due Date Last Done Comments DTaP/Tdap/Td Vaccines (1 - Tdap) 2002 HIV SCREENING 2006 DEPRESSION SCREENING 08/10/2020 08/10/2019 HEPATITIS A IMMUNIZATION SERIES Aged Out No [...] of right knee documented in this encounter Insurance Payer Benefit Plan Subscriber ID Effective Dates Phone Address Type / Group WC GENERIC [employer] WC-WORKERS xxxxxxxx-xxxxxx 2016-Prese Workers Comp COMP [facility] GENERIC [phone] [id number] (Work) documented as of this encounter Advance Directives Code Status Date Activated Date Inactivated Comments Full Code 05/21/2017 1:50 PM 05/21/2017 5:12 PM Does patient have decision making capacity? yes Order discussed with: Patient I discussed all options and patient/surrogate requested and agreed to: Full Code
--- OUTSIDE RECORDS SUMMARY | 2019-08-15 10:05 | XMS REPORT | Summary of Care ---
:1990 Author Organization [facility] Address [address] [place] [place] [address] Care Team Providers Name Role Phone Stated, Not Unavailable Unavailable Demetris Sanchez Primary Care Provider Reason for Visit Reason Comments Follow Up knee is painful, states that he fell and knocked himself out over the weekend, currently has a concussion S Core Decompression 6.7.19 Knee Injury right Worker's Compensation DOI: 11.8.16 Encounter Details Date Type Department Care Team Description 08/09/2019 Office Visit [facility], Avascular necrosis of right femur (HCC) (Primary Dx); [address] Chavez, JESSY Chronic pain of right knee [place] [id number] [address] [phone] [place] [address] Allergies Active Allergy Reactions Severity Noted Date Comments Cefaclor Monohydrate Hives, Swelling 12/16/2008 Tongue swelling Clindamycin Hives 02/21/2017 documented as of this encounter (statuses as of 08/09/2019) Medications Medication Sig Dispensed Refills Start Date End Date Status ibuprofen (MOTRIN) 800 Take 1 Tab by 60 Tab 0 12/04/2018 Active MG Oral Tab mouth EVERY SIX HOURS NEEDED (moderate pain). documented as of this encounter (statuses as of 08/09/2019) Active Problems Problem Noted Date Avascular necrosis of right femur 11/11/2018 Overview: Added automatically from request for surgery [id number] Complex regional pain syndrome type 1 of right lower extremity 09/18/2017 Chronic pain of right knee 08/07/2017 AVN (avascular necrosis of bone) 03/04/2017 Traumatic tear of medial meniscus of right knee 01/07/2017 Synovitis 08/05/2016 Right knee pain 05/13/2016 History of tobacco use 07/27/2015 Overview: Quit age 20 documented as of this encounter (statuses as of 08/09/2019) Resolved Problems Problem Noted Date Resolved Date Acute pain of right knee 02/05/2018 03/11/2018 Tear of lateral cartilage or meniscus of knee, current 06/03/2016 03/11/2018 Knee sprain 12/26/2013 07/27/2015 Knee pain, left 11/19/2013 07/27/2015 documented as of this encounter (statuses as of 08/09/2019) Social History Tobacco Use Types Packs/Day Years [...] encounter Progress Notes Scott Beaver NP - 08/09/2019 10:45 AM EST Name: Rubin May : 1990 Date of Service: 08/09/2019 Chief Complaint Patient presents with Follow Up knee is painful, states that he fell and knocked himself out over the weekend , currently has a concussion RKS Core Decompression 6.7.19 Knee Injury right Worker's Compensation DOI: 11.8.16 SUBJECTIVE: Rubin May is a 29-y.o. male who is approximately 8 months status-post right knee core decompression of medial femoral condyle. The patient reports pain continues without any improvement. He feels his pain has been gradually worsening. He reports he has fallen several times as a result of sudden painful exacerbations. Most recent fall occurred on Friday - he states he felt a sudden sharp pain and fell, striking his head on a bathtub. He reports he has little pain while standing still but has significant pain while ambulating, squatting, or kneeling. Reports pain remains localized to the medial joint line, described as sharp/stabbing. He has been doing therapeutic home exercises regularly, has stopped formal PT. Has not been getting relief with non-steroidal anti-inflammatory medications - cortisone injection at his last office visit did not help. Patient denies calf pain, numbness, tingling. Denies fevers, chills, constitutional symptoms. Past Medical History: Diagnosis Date H/O clavicle fracture Past Surgical History: Procedure Laterality Date ARTHROSCOPY KNEE Right 07/24/2016 Procedure: ARTHROSCOPY KNEE-MEDIAL MENISCUS TEAR; Surgeon: Bryce Sparks MD ; Location: [facility] MAIN OR KNEE ARTHROSCOPY Right 07/24/2016 Dr. Sparks KNEE ARTHROSCOPY Right 05/21/2017 Dr. 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 Overall alignment is normal. There is no erythema, warmth, or rubor. No visible swelling. No ecchymosis. ROM is 0 degrees of extension, 140 degrees flexion. Quad strength grossly 4+ to 5-/5, assessment limited by pain. Reports pain along medial joint line with resisted extension. TTP along the medial joint line. Nontender to lateral joint line. Distal pulses and sensation intact. LEFT KNEE [...] and discussed plan of care now approximately 8 months status-postright knee core decompression of medial femoral condyle. The patient continues to report severe painin the medial aspect of the right knee. Case reviewed with Dr. Redman - again reviewed that If hispain/ avascular necrosis does not improve, he could be a candidate for partial knee replacement in the future, but given his age we would ideally exhaust our conservative treatment options before considering this. Recommend obtaining a second opinion with regard to further surgical intervention. Patient would like to discuss with Dr. Alejandra and arrangements made for this. Continue HEP, conservative symptomaticcare in the interim. Risks and benefits of the above recommendations were discussed with the patient today; all questionswere answered. Case reviewed with Dr. Redman, who is in agreement with the above recommendations. Author: Scott Beaver NP documented in this encounter Plan of Treatment Date Type Specialty Care Team Description 08/10/2019 Office Visit Internal Medicine Demetris Sanchez MD [address] [place] [address] [phone] 08/16/2019 Office Visit Orthopedics Scott Beaver NP [address] [place] [address] 09/17/2019 Office Visit Orthopedics Orlando Alejandra MD [address] [place] [address] Health Maintenance Due Date Last Done [...] Effective Dates Phone Address Type / Group [employer] [place] [employer] xxxxxxxx-xxxxxx 2016-Prese Workers Comp COMP [facility] GENERIC [phone] (Work) documented as of this encounter Advance Directives Code Status Date Activated Date Inactivated Comments Full Code 05/21/2017 1:50 PM 05/21/2017 5:12 PM Does patient have decision making capacity? yes Order discussed with: Patient I discussed all options and patient/surrogate requested and agreed to: Full Code
[2019-08-15 10:19] VITALS: BP 134/80
--- NOTE | 2019-08-15 11:07 | UC ---
Respiratory Complaint HPI - HPI Summary HPI Summary: started 4 day ilene with cough, ST and fatigue, usually URI symp resolve on their own but this time he still feels sick has L side chest pain when taking a breath has taken no meds thus far - History of Current Complaint Chief Complaint: UCGeneralIllness Stated Complaint: CHEST CONGESTIION Time Seen by Provider: 08/15/19 10:19 Hx Obtained From: Patient Onset/Duration: Gradual Onset Timing: Constant Severity Initially: Mild Severity Currently: Mild Pain Intensity: 3 Character: Cough: Nonproductive Associated Signs And Symptoms: Positive: Chills. Negative: Wheezing, Hemoptysis - Allergies/Home Medications Allergies/Adverse Reactions: Allergies Allergy/AdvReac Type Severity Reaction Status Date / Time cefaclor [From [facility]] Allergy Swelling Verified 08/15/19 10:19 Of Face,Lips,& Throat Home Medications: Home Medications NK [No Home Medications Reported] 08/15/19 [History Confirmed 08/15/19] PMH/Surg Hx/FS Hx/Imm Hx Previously Healthy: Yes - Surgical History Surgical History: Yes Surgery Procedure, Year, and Place: EAR SURGERIES, HERNIA REPAIR. 07/2016-KNEE SURGERY- [facility] - Family History Known Family History: Negative: Blood Disorder - Social History Occupation: Employed Full-time Lives: With Family Alcohol Use: Rare Substance Use Type: None Smoking Status (MU): Never Smoked Tobacco Type: Smokeless Tobacco Amount Used/How Often: X 6 MONTHS- CURRENTLY 1 CAN PER DAY X 4 YEARS When Did the Patient Quit Smoking/Using Tobacco: 7 YEARS AGO - Immunization History Most Recent Tetanus Shot: UNKNOWN Review of Systems All Other Systems Reviewed And Are Negative: Yes Constitutional: Positive: Chills, Fatigue Skin: Positive: Negative ENT: Positive: Sore Throat Respiratory: Positive: Cough Cardiovascular: Positive: Chest Pain - left sided CP -occurs when takes breath in Gastrointestinal: Positive: Negative Neurovascular: Positive: Negative Musculoskeletal: Positive: Negative Psychological: Positive: Negative Is Patient Immunocompromised?: No Physical Exam Triage Information Reviewed: Yes Appearance: Well-Appearing, No Pain Distress, Well-Nourished Vital Signs: Initial Vital Signs Temp 99 F 08/15/19 10:15 Pulse 89 08/15/19 10:15 Resp 18 08/15/19 10:15 BP 134/80 08/15/19 10:15 Pulse Ox 99 08/15/19 10:15 Vital Signs Reviewed: Yes Eyes: Positive: Conjunctiva Clear ENT: Positive: Pharyngeal erythema. Negative: Nasal congestion Dental Exam: Normal Respiratory: Positive: Lungs clear, Other: - dry cough Cardiovascular Exam: Normal Cardiovascular: Positive: RRR Musculoskeletal Exam: Normal Neurological Exam: Normal Skin Exam: Normal Respiratory Course/Dx - Differential Dx/Diagnosis Differential Diagnosis/HQI/PQRI: Bronchitis, Influenza, Lower Resp Infection, Sinusitis, Other - strep throat Provider Diagnosis: Influenza Discharge ED - Sign-Out/Discharge Documenting (check all that apply): Patient Departure All imaging exams completed and their final reports reviewed: No Studies - Discharge Plan Condition: Stable Disposition: HOME Patient Education Materials: Influenza (ED) Referrals: Demetris Sanchez MD [Primary Care Provider] - 2 Days (if no better) Additional Instructions: drink plenty of fluids and rest use Tylenol or ibuprofen for pain and fever - Billing Disposition and Condition Condition: STABLE Disposition: Home
[2019-08-15 11:17] LABS: Influenza A Molecular POSITIVE (Negative)
== END 2019-08-15 11:43 | disposition home or self-care (01) ==
LOC: UCEAST 09:02
DX: J11.1 Influenza due to unidentified influenza virus with other respiratory manifestations (principal); R07.9 Chest pain, unspecified; Z88.1 Allergy status to other antibiotic agents
CPT/HCPCS: 87651; 99211; G0463